=== PATIENT | male | born 1970 | race African-American/Black ===

== ENCOUNTER 2018-10-18 12:34 | Emergency (ER) | payer SELFPAY ==
[~2018-10-18] VITALS: Ht 170.2 cm; Wt 86.2 kg
[2018-10-18] MEDS ORDERED: NITROGLYCERIN SUBLINGUAL 0.4 MG BOTTLE OF 25. SL ONE ×2 (12:45→13:45)
[2018-10-18] MEDS ORDERED: ASPIRIN 81 MG TAB.CHEW PO ONE (12:45)
--- NOTE | 2018-10-18 12:51 | PHYS DOC ---
Adult General Chief Complaint Chief Complaint: CHEST PAIN HPI HPI 48-year-old male presents with left-sided chest pain. Patient states that the pain started around 11:30 AM while he was lying in bed. He describes the pain as a sharp pressure that radiates through his left chest into his back. He describes it as severe. He feels like it is painful to breathe, but does not feel short of breath. He has not had diaphoresis. The patient has had intermittent episodes of pain some with exertion some without, but they were never this intense. The patient does not see a doctor regularly. The patient was feeling well prior to this episode. He denies fever or chills. He has no diagnosed cardiac history. He has a strong family history of cardiac disease. The patient admits to smoking crack cocaine one week ago. He has not had anything in the last week. He does admit to smoking "something" with his friends in the last few days but was not sure what it was. Review of Systems Review of Systems Constitutional: Denies fever or chills [] Eyes: Denies change in visual acuity, redness, or eye pain [] HENT: Denies nasal congestion or sore throat [] Respiratory: Denies cough or shortness of breath. Pain with deep breathing [] Cardiovascular: No additional information not addressed in HPI [] GI: Denies abdominal pain, nausea, vomiting, bloody stools or diarrhea [] : Denies dysuria or hematuria [] Musculoskeletal: Thoracic pain[] Integument: Denies rash or skin lesions [] Neurologic: Denies headache, focal weakness or sensory changes [] Endocrine: Denies polyuria or polydipsia [] All other systems were reviewed and found to be within normal limits, except as documented in this note. Physical Exam Physical Exam Constitutional: Well developed, well nourished, moderate acute distress, non- toxic appearance. [] HENT: Normocephalic, atraumatic, bilateral external ears normal, oropharynx moist, no oral exudates, nose normal. [] Eyes: PERRLA, EOMI, conjunctiva normal, no discharge. [] Neck: Normal range of motion, no tenderness, supple, no stridor. [] Cardiovascular:Heart rate regular rhythm, no murmur [] Lungs & Thorax: Bilateral breath sounds clear to auscultation [] Abdomen: Bowel sounds normal, soft, no tenderness, no masses, no pulsatile masses. [] Skin: Warm, dry, no erythema, no rash. [] Back: No tenderness, no CVA tenderness. [] Extremities: No tenderness, no cyanosis, no clubbing, ROM intact, no edema. [] Neurologic: Alert and oriented X 3, normal motor function, normal sensory function, no focal deficits noted. [] Psychologic: Affect normal, judgement normal, mood normal. [] EKG EKG Sinus rhythm, rate 72, normal axis, no ST elevation or depression.[] Radiology/Procedures Radiology/Procedures [] Course & Med Decision Making Course & Med Decision Making Pertinent Labs and Imaging studies reviewed. (See chart for details) KG is unremarkable. We have given the patient 324 of aspirin and 1 nitroglycerin sublingual. This brought his pain down to a 6. We have a second nitroglycerin was further improved his pain. The patient's HEART score is 5. His EKG is unremarkable. His first troponin is negative. His story is quite suspicious. I will admit the patient to the hospital. Patient continued be quite hypertensive so I ordered 0.2 of clonidine. The patient has refused to be admitted. He would like to leave AMA. I explained to him the risks of this including and he would still like to leave AMA. [] Dragon Disclaimer Dragon Disclaimer This electronic medical record was generated, in whole or in part, using a voice recognition dictation system. Departure Departure: Impression: Primary Impression: Chest pain Additional Impressions: Hypertension Drug use Disposition: ADMITTED INPATIENT Condition: STABLE Problem Qualifiers Primary Impression: Chest pain Chest pain type: precordial pain Qualified Codes: R07.2 - Precordial pain Additional Impressions: Hypertension Hypertension type: unspecified Qualified Codes: I10 - Essential (primary) hypertension TIM LUIS DO Oct 18, 2018 12:51
[2018-10-18 12:53] LABS: BASO # 0.1 x10^3/uL (0.0-0.2); BASO % 1 % (0-3); EOS # 0.2 x10^3/uL (0.0-0.7); EOS % 3 % (0-3); HEMATOCRIT 48.5 % (39.0-53.0); HEMOGLOBIN 16.9 g/dL (13.0-17.5); LYMPH # 2.1 x10^3/uL (1.0-4.8); LYMPH % 25 % (24-48); MEAN CORPUSCULAR HEMOGLOBIN 31 pg (25-35); MEAN CORPUSCULAR HGB CONC 35 g/dL (31-37); MEAN CORPUSCULAR VOLUME 87 fL (79-100); MONO # 0.6 x10^3/uL (0.0-1.1); MONO % 8 % (0-9); NEUT # 5.1 x10^3uL (1.8-7.7); NEUT % 63 % (31-73); PLATELET COUNT 321 x10^3/uL (140-400); RED BLOOD COUNT 5.55 x10^6/uL (4.30-5.70); RED CELL DISTRIBUTION WIDTH 14.1 % (11.5-14.5); WHITE BLOOD COUNT 8.1 x10^3/uL (4.0-11.0)
[2018-10-18 13:07] LABS: ALBUMIN 3.5 g/dL (3.4-5.0); ALBUMIN/GLOBULIN RATIO 0.7 (1.0-1.7); CALCIUM 9.2 mg/dL (8.5-10.1); CREATININE 1.2 mg/dL (0.7-1.3); GFR 78.2; POTASSIUM 3.7 mmol/L (3.5-5.1); TOTAL BILIRUBIN 0.8 mg/dL (0.2-1.0); TOTAL PROTEIN 8.3 g/dL (6.4-8.2)
--- NOTE | 2018-10-18 13:11 | RAD ---
CHEST AP ONLY Clinical Indication: Chest pain today Comparison: None. Findings: The cardiomediastinal silhouette is normal. Lungs are clear. There is no pneumothorax. No pleural effusion is appreciated. No acute bone abnormality. Degenerative changes of the right glenohumeral joint noted. IMPRESSION: No acute cardiopulmonary process. Electronically signed by: Jason Ramos MD (10/18/2018 1:08 PM) [facility]
[2018-10-18] MEDS ORDERED: IV NORMAL SALINE 1,000ML 1,000 ML IV ONE (13:45)
[2018-10-18 13:46] VITALS: BP 168/103
[2018-10-18] MEDS ORDERED: cloNIDine HCL 0.1 MG TABLET PO ONE (14:30)
--- NOTE | 2018-10-20 06:37 | EKG ---
[address] [address] Test Date: 2018-10-18 Test Time: 12:42:30 Pat Name: MARILYN BECERRA Department: Room: Gender: M Labeling Machine Operator: : 1970 Requested By: TIM LUIS Order Number: [id number] Reading MD: Measurements Intervals [place] Rate: 72 P: 38 NH: 146 QRS: 3 QRSD: 88 T: 77 QT: 414 QTc: 455 Interpretive Statements SINUS RHYTHM LVH WITH REPOLARIZATION ABNORMALITY QRS(T) CONTOUR ABNORMALITY CONSIDER ANTEROLATERAL MYOCARDIAL DAMAGE ABNORMAL ECG RI6.01 No previous ECG available for comparison
== END 2018-10-18 14:25 | disposition left against medical advice (07) ==
LOC: ER 12:34 → MERGE 12:34 → ER 14:25
DX: R07.2 Precordial pain (principal); M54.6 Pain in thoracic spine; I10 Essential (primary) hypertension; F14.90 Cocaine use, unspecified, uncomplicated
CPT/HCPCS: 36415; 71045; 80053; 84484; 85025; 93005; 99284-25; J7030

== ENCOUNTER 2021-06-15 10:31 | Emergency (ER) | payer SELFPAY ==
[~2021-06-15] VITALS: Ht 170.2 cm; Wt 86.0 kg
[2021-06-15] MEDS ORDERED: IV NORMAL SALINE 1,000ML 1,000 ML IV ONE (11:30)
[2021-06-15] MEDS ORDERED: hydrALAZINE 20 MG/ML VIAL. IV ONE (11:30)
--- NOTE | 2021-06-15 11:37 | PHYS DOC ---
Past History Past Medical History: Angina, Diabetes, Hypertension Past Surgical History: No Surgical History Alcohol Use: Heavy Drug Use: Cocaine, Marijuana General Adult EDM: Chief Complaint: MULTIPLE COMPLAINTS HPI: HPI: 50-year-old male presents with 4-day history of intermittent right-sided weakness, nausea, vomiting, headache. The patient has been tested for Covid and was negative. He was positive several months ago. The patient states that he has episodes where his right side "goes numb and does not work". These episodes can last up to 20 minutes and then his strength becomes normal again. It is both the right upper and lower extremity. He has had headache today that he describes as a pressure sensation. Patient's had multiple episodes of vomiting last couple of days. He does not see a doctor regularly. He is not on blood pressure medicine. On arrival his blood pressure was 200s over 110s. He denies fever or chills. Review of Systems: Review of Systems: Constitutional: Denies fever or chills Eyes: Denies change in visual acuity HENT: Denies nasal congestion or sore throat Respiratory: Denies cough or shortness of breath Cardiovascular: Denies chest pain or edema GI: Nausea, vomiting. : Denies dysuria Musculoskeletal: Denies back pain or joint pain Integument: Denies rash Neurologic: Headache. Intermittent right side weakness upper and lower extremity. Denies sensory changes Endocrine: Denies polyuria or polydipsia Lymphatic: Denies swollen glands Psychiatric: Denies depression or anxiety Allergies: Allergies: Allergies Coded Allergies Type Severity Reaction Last Updated Verified No Known Drug Allergies 06/15/21 No Physical Exam: PE: Constitutional: Well developed, well nourished, no acute distress, non-toxic appearance. [] HENT: Normocephalic, atraumatic, bilateral external ears normal, oropharynx moist, no oral exudates, nose normal. [] Eyes: PERRLA, EOMI, conjunctiva normal, no discharge. [] Neck: Normal range of motion, no tenderness, supple, no stridor. [] Cardiovascular: Heart rate 61, regular rhythm, no murmur [] Lungs & Thorax: Bilateral breath sounds clear to auscultation [] Abdomen: Bowel sounds normal, soft, no tenderness, no masses, no pulsatile masses. [] Skin: Warm, dry, no erythema, no rash. [] Back: No tenderness, no CVA tenderness. [] Extremities: No tenderness, no cyanosis, no clubbing, ROM intact, no edema. [] Neurologic: Alert and oriented X 3, normal motor function, normal sensory f unction, no focal deficits noted. [] Psychologic: Affect normal, judgement normal, mood concerned. [] Current Patient Data: Vital Signs: Vital Signs Date Time Temp Pulse Resp B/P (MAP) Pulse Ox O2 Delivery O2 Flow Rate FiO2 06/15/21 11:26 62 14 200/106 (137) 99 Room Air 06/15/21 11:06 97.1 EKG: EKG: [] Radiology/Procedures: Radiology/Procedures: [] Impressions: Study: XR CHEST 1V Indication: Hypertension. Comparison: 10/18/2018 Findings: The cardiomediastinal silhouette is within normal limits for size considering technique and unchanged from the prior. Relatively symmetric sandeep. No confluent airspace infiltrate, pleural effusion or pneumothorax. Impression: No acute radiographic abnormality of the chest. Electronically signed by: MANOJ LOVELACE MD (06/15/2021 12:26 PM) [id number] DICTATED AND SIGNED BY: MANOJ LOVELACE MD DATE: 06/15/21 1224 CC: TIM LUIS DO; ALYCIA,EN ~MTH0 0 EXAM: Head CT without contrast. HISTORY: Intermittent weakness. TECHNIQUE: Computed tomographic images of the head were obtained without contrast. *One or more of the following individualized dose reduction techniques were utilized for this examination: 1. Automated exposure control. 2. Adjustment of the mA and/or kV according to patient size. 3. Use of iterative reconstruction technique. COMPARISON: None. FINDINGS: There are confluent areas of decreased aeration within the right cerebellum, the appearance of which favors subacute infarction. The possibility of edema related to an underlying mass lesion is not excluded. There is no mass effect or midline shift. There is no hydrocephalus. The castillo-white matter differentiation pattern is intact. The orbits are unremarkable. There is paranasal sinus mucosal thickening. There is partial visualization of periapical lucency surrounding the root of a maxillary tooth. The mastoid air cells are clear. There is no suspicious calvarial lesion. IMPRESSION: 1. Confluent areas of decreased attenuation within the right cerebellum, the appearance of which favors subacute infarction. The possibility of an underlying lesion is not excluded. This can be better assessed with MRI. 2. No hemorrhage. Findings were discussed with Dr. Luis at 1220 hours on 06/15/2021 FOR INTERNAL CODING PURPOSES RESULT CODE: (C) Electronically signed by: Suzette Romeo MD (06/15/2021 12:27 PM) [id number] DICTATED AND SIGNED BY: SUZETTE ROMEO MD DATE: 06/15/211216 CC: TIM LUIS DO; PCP,NO ~MTH0 0 Heart Score: C/O Chest Pain: N/A Risk Factors: Risk Factors: DM, Current or recent (<one month) smoker, HTN, HLP, family history of CAD, obesity. Risk Scores: Score 0 - 3: 2.5% MACE over next 6 weeks - Discharge Home Score 4 - 6: 20.3% MACE over next 6 weeks - Admit for Clinical Observation Score 7 - 10: 72.7% MACE over next 6 weeks - Early Invasive Strategies Course & Med Decision Making: Course & Med Decision Making Pertinent Labs and Imaging studies reviewed. (See chart for details) The patient's chest x-ray is negative for acute findings. His EKG is unremarkable. The CT of his head however does show subacute infarction but underlying lesion cannot be excluded. See official read for more details. I have given him 10 of hydralazine and 0.2 clonidine for his elevated blood pressure. I spoke with the neurologist, and he has recommended that the patient be transferred to [facility] for MRI and control his blood pressure. He does not believe there is any acute intervention that the patient would benefit from. I agree. Prior to talking to hospitalist over [place], the patient stated that he wanted to go eat and that he was going to go home. We told him he would get him a tray for lunch now he knew he was not doing the surgery and that he really should stay so we can determine what is happening in his brain. Patient stated he does not care if he dies. OBS cares if he dies. He is leaving no matter what. Patient signed out AMA. Prior to leaving he was encouraged to establish with a physician and get an MRI. [] Nancy Disclaimer: Dragabdi Disclaimer: This electronic medical record was generated, in whole or in part, using a voice recognition dictation system. Departure Departure: Impression: Primary Impression: Cerebellar infarct Additional Impression: Cocaine use Disposition: 07 LEFT AWOL/ELOPED Condition: STABLE Referrals: PCP,EN (PCP) TIM LUIS DO Jun 15, 2021 11:37
[2021-06-15 12:14] LABS: BASO # 0.1 x10^3/uL (0.0-0.2); BASO % 1 % (0-3); EOS # 0.2 x10^3/uL (0.0-0.7); EOS % 2 % (0-3); HEMATOCRIT 45.2 % (39.0-53.0); HEMOGLOBIN 15.1 g/dL (13.0-17.5); LYMPH % 28 % (24-48); MEAN CORPUSCULAR HEMOGLOBIN 30 pg (25-35); MEAN CORPUSCULAR HGB CONC 33 g/dL (31-37); MEAN CORPUSCULAR VOLUME 89 fL (79-100); MONO # 0.6 x10^3/uL (0.0-1.1); MONO % 8 % (0-9); NEUT # 4.4 x10^3uL (1.8-7.7); NEUT % 61 % (31-73); PLATELET COUNT 289 x10^3/uL (140-400); RED BLOOD COUNT 5.08 x10^6/uL (4.30-5.70); RED CELL DISTRIBUTION WIDTH 14.6 % (11.5-14.5); WHITE BLOOD COUNT 7.3 x10^3/uL (4.0-11.0)
[2021-06-15 12:23] LABS: CALCIUM 8.5 mg/dL (8.5-10.1); GFR 95.7; POTASSIUM 3.3 mmol/L (3.5-5.1)
--- NOTE | 2021-06-15 12:28 | RAD ---
Study: XR CHEST 1V Indication: Hypertension. Comparison: 10/18/2018 Findings: The cardiomediastinal silhouette is within normal limits for size considering technique and unchanged from the prior. Relatively symmetric sandeep. No confluent airspace infiltrate, pleural effusion or pne umothorax. Impression: No acute radiographic abnormality of the chest. Electronically signed by: MANOJ LOVELACE MD (06/15/2021 12:26 PM) [id number]
[2021-06-15 12:29] LABS: ALBUMIN 3.2 g/dL (3.4-5.0); ALBUMIN/GLOBULIN RATIO 0.7 (1.0-1.7); TOTAL BILIRUBIN 0.4 mg/dL (0.2-1.0); TOTAL PROTEIN 7.5 g/dL (6.4-8.2)
[2021-06-15] MEDS ORDERED: cloNIDine HCL 0.1 MG TABLET PO ONE ×2 (12:30→13:15)
--- NOTE | 2021-06-15 12:30 | RAD ---
EXAM: Head CT without contrast. HISTORY: Intermittent weakness. TECHNIQUE: Computed tomographic images of the head were obtained without contrast. *One or more of the following individualized dose reduction techniques were utilized for this examina tion: 1. Automated exposure control. 2. Adjustment of the mA and/or kV according to patient size. 3. Use of iterative reconstruction technique. COMPARISON: None. FINDINGS: There are confluent areas of decreased aeration within the right cerebellum, the appearance of which favors subacute infarction. The possibility of edema related to an underlying mass lesion i s not excluded. There is no mass effect or midline shift. There is no hydrocephalus. The castillo-white m atter differentiation pattern is intact. The orbits are unremarkable. There is paranasal sinus mucosa l thickening. There is partial visualization of periapical lucency surrounding the root of a maxillar y tooth. The mastoid air cells are clear. There is no suspicious calvarial lesion. IMPRESSION: 1. Confluent areas of decreased attenuation within the right cerebellum, the appearance of which favo rs subacute infarction. The possibility of an underlying lesion is not excluded. This can be better a ssessed with MRI. 2. No hemorrhage. Findings were discussed with Dr. Florence at 1220 hours on 06/15/2021 FOR INTERNAL CODING PURPOSES RESULT CODE: (C) Electronically signed by: Suzette Martel MD (06/15/2021 12:27 PM) [id number]
--- NOTE | 2021-06-15 12:59 | EKG ---
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
[2021-06-15 13:47] LABS: BARBITURATES NEG (NEG); BENZODIAZEPINES NEG (NEG); CANNABINOIDS POS (NEG); COCAINE POS (NEG); METHADONE NEG (NEG); OPIATES NEG (NEG); PHENCYCLIDINE NEG (NEG)
[2021-06-15 13:48] LABS: AMPHETAMINE/METHAMPHETAMINE NEG (NEG)
[2021-06-15 13:53] VITALS: BP 194/86
[2021-06-15 13:55] LABS: BILIRUBIN,URINE NEG (NEG); CLARITY,URINE CLEAR; COLOR,URINE YELLOW; GLUCOSE,URINE NEG (NEG); NITRITE,URINE NEG (NEG)
[2021-06-15 13:56] LABS: BACTERIA,URINE 0 /HPF (0-FEW); SQUAMOUS EPITHELIAL CELL,UR OCC /LPF; WBC,URINE OCC /HPF (0-4)
== END 2021-06-15 14:10 | disposition left against medical advice (07) ==
LOC: ER 10:31
DX: I63.9 Cerebral infarction, unspecified (principal); E11.9 Type 2 diabetes mellitus without complications; I10 Essential (primary) hypertension; F12.10 Cannabis abuse, uncomplicated; F14.10 Cocaine abuse, uncomplicated; F10.20 Alcohol dependence, uncomplicated; Y90.9 Presence of alcohol in blood, level not specified
CPT/HCPCS: 36415; 70450; 71045; 80053; 80307; 81001; 84484; 85025; 93005; 96361; 96374; 99285; J0360; J7030